=== PATIENT | female | born 1955 | race Hispanic/Latino ===

== ENCOUNTER 2025-04-15 08:08 | Outpatient (CLI) | payer MEDICARE, BC | END 2025-04-15 08:09 | disposition home or self-care (01) | LOC: CSHULT 08:08 | PROVIDERS: ATTEND Family Medicine | DX: R74.8 Abnormal levels of other serum enzymes (principal); K76.0 Fatty (change of) liver, not elsewhere classified | CPT/HCPCS: 76705 ==

== ENCOUNTER 2025-07-14 18:27 | Emergency (ER) | payer MEDICARE, BC | END 2025-07-14 20:21 | disposition home or self-care (01) | LOC: CSHERS 18:27 | DX: S09.90XA Unspecified injury of head, initial encounter (principal); E11.9 Type 2 diabetes mellitus without complications; I10 Essential (primary) hypertension; Z79.84 Long term (current) use of oral hypoglycemic drugs; Z79.899 Other long term (current) drug therapy; W18.30XA Fall on same level, unspecified, initial encounter; Y92.009 Unspecified place in unspecified non-institutional (private) residence as the place of occurrence of the external cause | CPT/HCPCS: 70450; 71250; 72125 ==